=== PATIENT | female | born 1935 | race Caucasian/White ===

== ENCOUNTER 2018-07-03 00:44 | Inpatient (IN) | payer OTHER | END 2018-07-05 18:22 | disposition home health service (06) | LOC: JER 00:44 → JERBED 06:19 → J6S 11:50 ==

== ENCOUNTER 2020-04-09 12:06 | Emergency (ER) | payer OTHER | END 2020-04-09 12:41 | disposition home or self-care (01) | LOC: JVIRT 12:06 | DX: Z20.822 Contact with and (suspected) exposure to COVID-19 (principal) | CPT/HCPCS: C9803; G2251-GT; Q3014-GT; U0003 ==

== ENCOUNTER 2022-02-06 12:22 | Emergency (ER) | payer OTHER ==
[2022-02-06] MEDS ORDERED: ALBUTEROL SO4 2.5/IPRATROPIUM 0.5 INH SOL 3 ML VIAL.NEB. NEB ONE ×2 (13:17→14:24)
[2022-02-06 13:22] VITALS: BMI 28.3
[2022-02-06] MEDS ORDERED: predniSONE 20 MG TABLET (UD) PO ONE (14:24)
[2022-02-06] MEDS ORDERED: ACETAMINOPHEN 325 MG TABLET (FP) PO ONE (14:41)
[2022-02-06 14:42] LABS: HEMATOCRIT 42.3 % (32.4-45.2); HEMOGLOBIN 14.6 G/dL (10.7-15.3); MCH 32.3 pg (25.7-33.7); MCHC 34.6 g/dl (32.0-36.0); MEAN CELL VOLUME 93.3 fl (80-96); PLATELET COUNT 219.9 10^3/uL (134-434); RBC 4.53 10^6/uL (3.60-5.2); RDW 13.9 % (11.6-15.6); WHITE BLOOD COUNT 13.4 10^3/uL (4.0-10.8)
[2022-02-06 15:07] LABS: ALBUMIN 3.7 g/dl (3.4-5.0); BILIRUBIN,TOTAL 1.6 mg/dl (0.2-1); CALCIUM 9.2 mg/dl (8.5-10); CREATININE 0.8 mg/dl (0.55-1.3); TOT PROT 6.7 g/dl (6.4-8.2)
[2022-02-06 15:10] LABS: EPITHELIAL CELLS FEW /hpf
[2022-02-06] MEDS ORDERED: predniSONE 20 MG TABLET (UD) ONE (15:10)
[2022-02-06] MEDS ORDERED: ACETAMINOPHEN 325 MG TABLET (FP) ONE (15:10)
[2022-02-06 15:21] LABS: PLATELET ESTIMATE ADEQUATE
[2022-02-06 16:06] VITALS: TEMP 98.3
[2022-02-06] MEDS ORDERED: SODIUM CHLORIDE 500 ML IV STA (16:23)
[2022-02-06 17:19] LABS: N-TERMINAL BNP 1317.3 pg/ml (5-450)
[2022-02-06] MEDS ORDERED: AZITHROMYCIN 500 MG TABLET PO ONE (17:52)
[2022-02-06] MEDS ORDERED: AZITHROMYCIN IVPB 500 MG in DEXTROSE 5%-WATER - 250 ML IVPB ONE (17:52)
[2022-02-06] MEDS ORDERED: AZITHROMYCIN 500 MG TABLET ONE (18:47)
[2022-02-06 19:19] VITALS: BP 117/65; PULSE 69; RESP 17
[2022-02-06 20:46] LABS: BLOOD UREA NITROGEN 11.4 mg/dL (7-18); CREATININE 0.9 mg/dL (0.55-1.3)
[2022-02-06 20:47] LABS: CALCIUM 9.2 mg/dL (8.5-10.1)
== END 2022-02-06 21:05 | disposition home or self-care (01) ==
LOC: FER 12:22
PROC: 3E0F7GC Introduction of Other Therapeutic Substance into Respiratory Tract, Via Natural or Artificial Opening (ICD-10-PCS; principal; 2022-02-06)
PROC: 3E03329 Introduction of Other Anti-infective into Peripheral Vein, Percutaneous Approach (ICD-10-PCS; 2022-02-06)
PROC: 3E0337Z Introduction of Electrolytic and Water Balance Substance into Peripheral Vein, Percutaneous Approach (ICD-10-PCS; 2022-02-06)
DX: J20.9 Acute bronchitis, unspecified (principal)
CPT/HCPCS: 0241U-QW; 36415; 71045-TC-FY; 80048; 80053; 81003; 81015; 83880; 84484; 85027; 93005; 99285-25

== ENCOUNTER 2023-01-07 12:09 | Emergency (ER) | payer OTHER ==
[2023-01-07 12:52] VITALS: RESP 18; BMI 33.2
[2023-01-07] MEDS ORDERED: SODIUM PHOSPHATE/NA BIPHOS 133 ML ENEMA PR ONE (12:53)
[2023-01-07] MEDS ORDERED: MAGNESIUM CITRATE 300 ML BOTTLE PO ONE (12:53)
[2023-01-07] MEDS ORDERED: MAGNESIUM CITRATE 300 ML BOTTLE ONE (12:54)
[2023-01-07] MEDS ORDERED: ALBUTEROL SO4 0.083% IH SOL 2.5 MG/3 ML VIAL.NEB. NEB ONE ×2 (13:19→13:21)
[2023-01-07] MEDS ORDERED: BISACODYL 10 MG SUPP.RECT PR ONE (14:32)
[2023-01-07] MEDS ORDERED: BISACODYL 10 MG SUPP.RECT ONE (14:35)
[2023-01-07 15:26] VITALS: BP 141/72; PULSE 66; TEMP 98.4
[2023-01-07] MEDS ORDERED: LIDOCAINE HCL 2% JELLY 10 ML CARTRIDGE PR ONE (15:54)
== END 2023-01-07 17:02 | disposition home or self-care (01) ==
LOC: FER 12:09
PROC: 3E0F7GC Introduction of Other Therapeutic Substance into Respiratory Tract, Via Natural or Artificial Opening (ICD-10-PCS; principal; 2023-01-07)
DX: K56.41 Fecal impaction (principal); K62.89 Other specified diseases of anus and rectum
CPT/HCPCS: 99283-25

== ENCOUNTER 2023-06-13 01:52 | Inpatient (IN) | payer OTHER ==
[2023-06-13] MEDS ORDERED: ACETAMINOPHEN INJECTION 100 ML IVPB ONE (03:13)
[2023-06-13] MEDS: ACETAMINOPHEN 1000 MG/100 ML BAG IVPB ONE ×2 (03:16→20:29)
[2023-06-13 03:32] LABS: BASO % 0.2 % (0-2.0); EOS % 0.2 % (0-4.5); HEMATOCRIT 41.5 % (32.4-45.2); LYMPH % 10.2 % (8-40); MCH 30.7 pg (25.7-33.7); MCHC 33.8 g/dl (32.0-36.0); MEAN CELL VOLUME 90.8 fl (80-96); NEUT % 81.4 % (42.8-82.8); PLATELET COUNT 222 10^3/uL (134-434); RBC 4.57 M/mm3 (3.60-5.2); WHITE BLOOD COUNT 10.1 K/mm3 (4.0-10.0)
[2023-06-13 03:35] LABS: EPI CELLS 3 /uL (0-25.1); HYALINE CASTS 0 /uL (0-3.1); PH,URINE 5.5 (5.0-8.0); URINE APPEARANCE CLEAR; URINE BACTERIA 1 /uL (0-1359); URINE BILIRUBIN NEGATIVE (NEGATIVE); URINE COLOR YELLOW; URINE GLUCOSE (UA) NEGATIVE (NEGATIVE); URINE KETONE NEGATIVE (NEGATIVE); URINE LEUK ESTERASE TRACE (NEGATIVE); URINE NITRITE NEGATIVE (NEGATIVE); URINE PROTEIN NEGATIVE (NEGATIVE); URINE RBC 7 /uL (0-23.9); URINE UROBILINOGEN 0.2 mg/dL (0.2-1.0); URINE WBC 20 /uL (0-25.8)
[2023-06-13 03:51] LABS: POTASSIUM 4.1 mmol/L (3.5-5.1)
[2023-06-13 03:55] LABS: ALBUMIN 3.3 g/dl (3.4-5.0); BLOOD UREA NITROGEN 22.5 mg/dL (7-18); CALCIUM 8.9 mg/dL (8.5-10.1)
[2023-06-13 03:58] LABS: TOT PROT 6.4 g/dl (6.4-8.2)
[2023-06-13] MEDS ORDERED: FUROSEMIDE 40 MG/4 ML INJECTABLE VIAL ONE (04:46)
[2023-06-13] MEDS: FUROSEMIDE 40 MG/4 ML INJECTABLE VIAL IVPUSH ONE (04:57)
[2023-06-13] MEDS ORDERED: IBUPROFEN 400 MG TABLET (FP) PO ONE (05:12)
[2023-06-13] MEDS: IBUPROFEN 400 MG TABLET (FP) PO ONE (05:31)
[2023-06-13 06:51] VITALS: BMI 30.4
[2023-06-13] MEDS: ISOSORBIDE MONONITRATE 30 MG TAB.SR.24H (FP) PO SCH (11:52)
[2023-06-13] MEDS: FAMOTIDINE 20 MG TABLET PO SCH (11:52)
[2023-06-13] MEDS: ESCITALOPRAM OXALATE 10 MG TABLET PO SCH (11:52)
[2023-06-13] MEDS ORDERED: ALBUTEROL SO4 2.5/IPRATROPIUM 0.5 INH SOL 3 ML VIAL.NEB. NEB SCH (12:00)
[2023-06-13] MEDS: FLUTICASONE/UMECLIDIN/VILANTER(200-62.5-25 TRELEGY ELLIPTA) INAHLER IH SCH (12:02)
[2023-06-13] MEDS: ALBUTEROL SO4 2.5/IPRATROPIUM 0.5 INH SOL 3 ML VIAL.NEB. NEB PRN (13:25)
[2023-06-13] MEDS: HEPARIN NA (PORCINE) 5,000 UNITS/ML 1ML VIAL SQ SCH (17:15)
[2023-06-14 09:05] LABS: ALBUMIN 3.9 g/dl (3.4-5.0); ALK PHOS 62 U/L (45-117); ANION GAP 11 mmol/L (4-13); BILIRUBIN,TOTAL 1.6 mg/dl (0.2-1); CALCIUM 9.4 mg/dl (8.5-10.1); CHLORIDE 100 mmol/L (98-107); CO2 26 mmol/L (21-32); CREATININE 0.8 mg/dl (0.6-1.3); GLUCOSE,RANDOM 100 mg/dl (74-106); POTASSIUM 3.8 mmol/L (3.5-5.1); SGOT/AST 13 U/L (15-37); SGPT/ALT 8 U/L (7-52); SODIUM 137 mmol/L (136-145); TOT PROT 6.3 g/dl (6.4-8.2)
[2023-06-14 09:36] LABS: BASO % 0.4 % (0-2.0); EOS % 0.2 % (0-4.5); HEMATOCRIT 40.6 % (32.4-45.2); HEMOGLOBIN 13.8 GM/dL (10.7-15.3); LYMPH % 14.8 % (8-40); MCH 31.1 pg (25.7-33.7); MCHC 34.1 g/dl (32.0-36.0); MEAN CELL VOLUME 91.4 fl (80-96); MEAN PLT VOLUME 8.2 fl (7.5-11.1); NEUT % 74.6 % (42.8-82.8); PLATELET COUNT 233 10^3/uL (134-434); RBC 4.44 M/mm3 (3.60-5.2); RDW 13.9 % (11.6-15.6); WHITE BLOOD COUNT 9.2 K/mm3 (4.0-10.0)
[2023-06-14] MEDS: predniSONE 20 MG TABLET (UD) PO SCH (15:07)
[2023-06-15 02:15] VITALS: RESP 18
[2023-06-15 06:33] VITALS: PULSE 78
[2023-06-15 10:22] VITALS: BP 158/78; TEMP 98
== END 2023-06-15 11:56 | disposition home or self-care (01) | DRG 190 ==
LOC: FER 01:52 → FM/S 06:17 → OBSVTOIN 10:09
PROVIDERS: ADMIT Internal Medicine
DX: J44.1 Chronic obstructive pulmonary disease with (acute) exacerbation (principal); J18.9 Pneumonia, unspecified organism; I50.32 Chronic diastolic (congestive) heart failure; N39.0 Urinary tract infection, site not specified; I11.0 Hypertensive heart disease with heart failure; J44.0 Chronic obstructive pulmonary disease with (acute) lower respiratory infection; F41.9 Anxiety disorder, unspecified; I25.10 Atherosclerotic heart disease of native coronary artery without angina pectoris; I10 Essential (primary) hypertension; E78.5 Hyperlipidemia, unspecified; Z85.118 Personal history of other malignant neoplasm of bronchus and lung; Z86.711 Personal history of pulmonary embolism
CPT/HCPCS: 0241U-QW; 36415; 71045-TC-FY; 71250-TC; 80053; 81003; 83880; 85025; 87040; 87899; 93005; 93010; 94640; 97116-GP; 97162-GP; 99285-25; G0378; J0131; J1644